=== PATIENT | male | born 1985 | race American Indian/Alaskan Native ===

== ENCOUNTER 2020-08-19 20:18 | Observation (INO) | payer OTHER ==
[2020-08-19] MEDS ORDERED: HYDROmorphone 1 MG/1 ML INJ IV ONE (23:39)
[2020-08-19] MEDS ORDERED: ACETAMINOPHEN 325 MG TAB PO STA (23:40)
--- NOTE | 2020-08-19 23:41 | Emergency Department Report ---
ED General Adult HPI - General Chief complaint: Sickle Cell Crisis Stated complaint: SICKLE CELL PAIN PUI?: Yes Time Seen by Provider: 08/19/20 23:30 Source: patient, RN notes reviewed Mode of arrival: Ambulatory Limitations: No Limitations - History of Present Illness Initial comments: The patient was evaluated in the emergency department for symptoms described in the history of present illness. He/she was evaluated in the context of the global COVID-19 pandemic, which necessitated consideration that the patient might be at risk for infection with the virus that causes COVID-19. Institutional protocols and algorithms that pertain to the evaluation of patients at risk for COVID-19 are in a state of rapid change based on information released by regulatory bodies including the CDC and federal and state organizations. These policies and algorithms were followed during the patient's care in the emergency department. Please note that these policies, procedures and recommendations changed on a rapid basis. Mr. Solorio is a pleasant 34-year-old gentleman who is not known to myself previously. His medical oncology physician is a Dr. Kramer, who he reports works in [place]. He reports that he has a history of sickle cell trait, but not true sickle cell disease, that he is aware of. He presents to the ER with a complaint of yellow eyes, feeling like his body is hot, intermittent shakes and chills, without significant pain, denies headache, neck pain, chest pain, abdominal pain, shortness of breath, cough, loss of taste, loss of smell, and urinary symptoms. He states that he is gotten scleral icterus in the past, but reports is not been as impressive as it is today. He rates his discomfort as a 7 out of 10. He states he is follow-up with his specialist later on this week, he denies recent travel, surgeries, leg pain and leg swelling. -: Gradual Consistency: constant Improves with: none Worsens with: none - Related Data Home Medications Medication Instructions Recorded Confirmed Last Taken Folic Acid [Folvite] 1 mg PO QDAY 08/20/20 08/20/20 Unknown Allergies Allergy/AdvReac Type Severity Reaction Status Date / Time No Known Allergies Allergy Verified 08/19/20 21:23 ED Review of Systems ROS: Stated complaint: SICKLE CELL PAIN Other details as noted in HPI Constitutional: chills, diaphoresis, fever Eyes: denies: eye discharge ENT: denies: epistaxis Respiratory: denies: cough Cardiovascular: denies: chest pain Gastrointestinal: denies: abdominal pain, nausea, vomiting, diarrhea Genitourinary: denies: dysuria Musculoskeletal: myalgia. denies: back pain Skin: denies: lesions Neurological: weakness Hematological/Lymphatic: denies: easy bleeding ED Past Medical Hx - Past Medical History Previous Medical History?: Yes Hx Sickle Cell Disease: Yes - Surgical History Past Surgical History?: No - Medications Home Medications: Home Medications Medication Instructions Recorded Confirmed Last Taken Type Folic Acid [Folvite] 1 mg PO QDAY 08/20/20 08/20/20 Unknown History ED Physical Exam - General Limitations: No Limitations General appearance: alert, in no apparent distress - Head Head exam: Present: atraumatic, normocephalic - Eye Eye exam: Present: normal appearance, EOMI, scleral icterus. Absent: nystagmus - ENT ENT exam: Present: normal exam, normal orophraynx, mucous membranes moist, normal external ear exam - Neck Neck exam: Present: normal inspection, full ROM. Absent: tenderness, meningismus - Respiratory Respiratory exam: Present: normal lung sounds bilaterally. Absent: respiratory distress, wheezes, rales, rhonchi, stridor, decreased breath sounds - Cardiovascular Cardiovascular Exam: Present: regular rate, normal rhythm, normal heart sounds. Absent: bradycardia, tachycardia, irregular rhythm, systolic murmur, diastolic murmur, rubs, gallop - GI/Abdominal GI/Abdominal exam: Present: soft. Absent: distended, tenderness, guarding, rebound, rigid, pulsatile mass - Rectal Rectal exam: Present: deferred - Extremities Exam Extremities exam: Present: normal inspection, full ROM, other (2+ pulses noted in the bilateral upper and lower extremities. There is no palpable cord. negative Homans sign. Muscular compartments are soft. The pelvis is stable.). Absent: pedal edema, calf tenderness - Back Exam Back exam: Present: normal inspection, full ROM. Absent: tenderness, CVA tenderness (R), CVA tenderness (L), muscle spasm, paraspinal tenderness, vertebral tenderness - Neurological Exam Neurological exam: Present: alert, oriented X3, other (No facial droop. Tongue midline. Extraocular movements intact bilaterally. Facial sensation intact to light touch in V1, V2, V3 distribution bilaterally. 5 and a 5 strength in 4 extremities. Sensation intact to light touch in 4 extremities.). Absent: motor sensory deficit - Psychiatric Psychiatric exam: Present: normal affect, normal mood - Skin Skin exam: Present: warm, dry, intact, normal color. Absent: rash ED Course Vital Signs 08/19/20 08/19/20 08/20/20 21:21 23:25 00:15 Temperature 99.1 F 98.9 F Pulse Rate 91 H 84 81 Respiratory 16 20 20 Rate Blood Pressure 125/69 127/76 117/61 Blood Pressure 127/76 [Left] O2 Sat by Pulse 92 92 97 Oximetry 08/20/20 08/20/20 08/20/20 00:20 00:31 00:45 Temperature Pulse Rate 79 76 Respiratory 18 14 18 Rate Blood Pressure 114/60 128/67 Blood Pressure [Left] O2 Sat by Pulse 100 100 Oximetry 08/20/20 08/20/20 08/20/20 00:50 01:01 01:15 Temperature Pulse Rate 76 79 Respiratory 18 10 L 18 Rate Blood Pressure 118/63 110/55 Blood Pressure [Left] O2 Sat by Pulse 100 100 Oximetry 08/20/20 08/20/20 08/20/20 01:31 01:45 02:01 Temperature Pulse Rate 132 H 124 H 78 Respiratory 24 24 13 Rate Blood Pressure 111/58 111/64 118/67 Blood Pressure [Left] O2 Sat by Pulse 99 100 99 Oximetry 08/20/20 08/20/20 08/20/20 02:15 02:31 02:45 Temperature Pulse Rate 76 73 78 Respiratory 13 16 15 Rate Blood Pressure 116/65 116/64 111/63 Blood Pressure [Left] O2 Sat by Pulse 100 100 100 Oximetry 08/20/20 08/20/20 08/20/20 03:01 03:15 03:31 Temperature Pulse Rate 76 88 79 Respiratory 25 H 15 21 Rate Blood Pressure 114/60 120/64 104/44 Blood Pressure [Left] O2 Sat by Pulse 100 100 100 Oximetry 08/20/20 08/20/20 08/20/20 03:45 03:56 04:01 Temperature Pulse Rate 78 84 Respiratory 18 18 17 Rate Blood Pressure 105/50 114/56 Blood Pressure [Left] O2 Sat by Pulse 100 99 Oximetry - Reevaluation(s) Reevaluation #1: 08/20/20 00:45 Differential diagnosis, include but not limited to: Hepatitis, viral syndrome, pneumonia, urinary tract infection, hemolysis assessment and plan: 34-year-old gentleman With low-grade temperature, hypoxia, scleral icterus, reported history of sickle cell trait, without significant pain. Patient placed on isolation precautions. Laboratory studies ordered. Urinalysis pending. Reassess after initial data points. Patient is asking for pain medicine. We will order pain medicine. He will also be given acetaminophen. Reassess after initial data points. Reevaluation #2: 08/20/20 02:01 Laboratory studies show anemia, elevated reticulocyte count, leukocytosis, metabolic acidosis, hyperbilirubinemia, x-ray of the chest is clear. Rediscussed with patient. He continues to be hypoxic, and requires 2 to 3 L of supplemental oxygen. He will be given Decadron, ceftriaxone and azithromycin. I have recommended admission to the medical service for supportive care. The patient is amenable to hospitalization. Hospital physician, Dr. Franky Hartmann to admit With clear x-ray of the chest, this is unlikely to be acute chest syndrome. Patient denies chest pain, significant shortness of breath, posterior leg pain and leg swelling. We do not suspect a pulmonary embolus. He is not tachycardic at this time 08/20/20 02:03 ED Medical Decision Making - Lab Data Result diagrams: 08/20/20 14:58 08/20/20 12:05 Vital Signs 08/19/20 08/19/20 08/20/20 21:21 23:25 00:20 Temperature 99.1 F 98.9 F Pulse Rate 91 H 84 Respiratory 16 20 18 Rate Blood Pressure 125/69 127/76 Blood Pressure 127/76 [Left] O2 Sat by Pulse 92 92 Oximetry - Radiology Data Radiology results: report reviewed, image reviewed interpreted by me: 1 view x-ray of the chest, interpreted by myself, clear lungs, no pneumothorax, no infiltrate, unremarkable cardiac silhouette, unremarkable osseous anatomy X-ray of the chest is negative for acute findings. Critical care attestation.: If time is entered above; I have spent that time in minutes in the direct care of this critically ill patient, excluding procedure time. ED Disposition Clinical Impression: Suspected 2019 novel coronavirus infection, Hypoxia, Sickle cell anemia with crisis, Hyperbilirubinemia Disposition: OP ADMIT IP TO THIS HOSP Is pt being admited?: Yes Does the pt Need Aspirin: No Condition: Serious
[2020-08-19] MEDS ORDERED: D5W/0.45% NACL 1,000 ML IV SCH (23:45)
--- NOTE | 2020-08-20 00:59 | XRay Report ---
CHEST 1 VIEW 08/20/2020 12:05 AM INDICATION / CLINICAL INFORMATION: hypoxia, hbss crisis. COMPARISON: None available. FINDINGS: SUPPORT DEVICES: None. HEART / MEDIASTINUM: No significant abnormality. LUNGS / PLEURA: No significant pulmonary or pleural abnormality. No pneumothorax. ADDITIONAL FINDINGS: No significant additional findings. IMPRESSION: 1. No acute findings. Signer Name: Kwabena Johnson MD Signed: 08/20/2020 12:54 AM Workstation Name: [id number]
[2020-08-20 01:02] LABS: Hemoglobin 7.2 gm/dl (11.8-15.2); Mean Corpuscular HGB Conc 37 % (32-34); Mean Corpuscular Volume 90 fl (84-94); Platelet Count 348 K/mm3 (140-440); Red Blood Count 2.18 M/mm3 (3.65-5.03)
[2020-08-20 01:10] LABS: Red Cell Distribution Width 20.8 % (13.2-15.2)
[2020-08-20 01:11] LABS: INR 1.11 (0.87-1.13)
[2020-08-20 01:20] LABS: Bacteria,Urine 1+ /HPF (Negative); Bilirubin,Urine SM (Negative); Blood,Urine SM (Negative); Color,Urine Amber (Yellow); Protein,Urine <15 mg/dL mg/dL (Negative)
[2020-08-20 01:23] LABS: Alanine Aminotransferase 62 units/L (7-56); Albumin 4.1 g/dL (3.9-5); Bilirubin,Direct 4.8 mg/dL (0-0.2); Blood Urea Nitrogen 12 mg/dL (9-20); Calcium 8.2 mg/dL (8.4-10.2); Hemolysis Index 25
[2020-08-20 01:30] LABS: Ictotest,Urine Positive (Negative)
[2020-08-20 01:33] LABS: BUN/Creatinine Ratio 40
[2020-08-20] MEDS ORDERED: AZITHROMYCIN 500 MG in SODIUM CHLORIDE 0.9% 250ML 250 ML IV ONE (02:00)
[2020-08-20] MEDS ORDERED: D5W/0.45% NACL 1,000 ML IV SCH (02:00)
[2020-08-20] MEDS ORDERED: dexAMETHasone 4 MG/ML VIAL IV ONE (02:00)
[2020-08-20] MEDS ORDERED: cefTRIAXone/NS 1 GM/50 ML 1 GM/50 ML BAG IV STA (02:00)
[2020-08-20 02:38] LABS: Total Cells Counted 100
[2020-08-20 02:39] LABS: Sickle Cells 2+
[2020-08-20 02:40] LABS: Anisocytosis 1+; Hypochromasia 1+
[2020-08-20 02:43] LABS: Target Cells Few
[2020-08-20 02:44] LABS: Platelet Estimate Consistent w Auto
[2020-08-20] MEDS ORDERED: ACETAMINOPHEN 325 MG TAB PO PRN (03:15)
[2020-08-20] MEDS ORDERED: ONDANSETRON 4 MG/2 ML INJ IV PRN ×2 (03:15)
[2020-08-20] MEDS ORDERED: MAGNESIUM HYDROXIDE (MOM) ORAL LIQD UDC PO PRN ×2 (03:15)
[2020-08-20] MEDS ORDERED: HYDROmorphone 1 MG/1 ML INJ IV PRN (03:15)
[2020-08-20] MEDS ORDERED: diphenhydrAMINE 50 MG/ML VIAL IV PRN (03:15)
--- NOTE | 2020-08-20 03:30 | History and Physical Report ---
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 He denies any headache or dizziness, no chest pain or shortness of breath, denies any cough, no hematuria or dysuria, denies any sick contacts and no recent travel. Patient denies contact with anyone with COVID-19. He was hypoxic upon arrival in the emergency room today. Chest x-ray was unremarkable. He had elevated bilirubin and elevated reticulocyte counts. Patient is being admitted for sickle cell crisis and also to be ruled out for possible COVID. Past History Past Medical History: other (Sickle cell disease) Past Surgical History: No surgical history Social history: no significant social history Family history: no significant family history Medications and Allergies Allergies Allergy/AdvReac Type Severity Reaction Status Date / Time No Known Allergies Allergy Verified 08/19/20 21:23 Home Medications Medication Instructions Recorded Confirmed Last Taken Type Folic Acid [Folvite] 1 mg PO QDAY 08/20/20 08/20/20 Unknown History Active Meds: Active Medications Acetaminophen (Tylenol) 650 mg PO Q4H PRN PRN Reason: Pain MILD(1-3)/Fever >100.5/DORAN Bisacodyl (Dulcolax) 10 mg [place] QDAY PRN PRN Reason: Constipation unrelieved by MOM Diphenhydramine HCl (Benadryl) 25 mg IV Q6H PRN PRN Reason: Itching Folic Acid (Folvite) 1 mg PO QDAY ROJAS Hydromorphone HCl (Dilaudid) 0.5 mg IV Q3H PRN PRN Reason: Pain , Severe (7-10) Dextrose/Sodium Chloride (D5/0.45ns) 1,000 mls @ 0 mls/hr IV DIRECT ROJAS Azithromycin 500 mg/ Sodium (Chloride) 250 mls @ 250 mls/hr IV Q24HR ROJAS; Protocol Ceftriaxone Sodium (Rocephin/Ns 2 Gm/100 Ml) 2 gm in 100 mls @ 200 mls/hr IV Q24HR ROJAS; Protocol Magnesium Hydroxide (Milk Of Magnesia) 30 ml PO Q4H PRN PRN Reason: Constipation Magnesium Hydroxide (Milk Of Magnesia) 30 ml PO Q4H PRN PRN Reason: Constipation Multivitamins (Theragran Tab) 1 each PO QDAY [facility] Ondansetron HCl (Zofran) 4 mg IV Q8H PRN PRN Reason: Nausea And Vomiting Ondansetron HCl (Zofran) 4 mg IV Q8H PRN PRN Reason: Nausea And Vomiting Senna (Senokot) 17.2 mg PO QHS ROJAS Sodium Chloride (Sodium Chloride Flush Syringe 10 Ml) 10 ml IV BID ROJAS Sodium Chloride (Sodium Chloride Flush Syringe 10 Ml) 10 ml IV PRN PRN PRN Reason: LINE FLUSH Review of Systems Constitutional: fever, no chills Ears, nose, mouth and throat: no nasal congestion, no sore throat Cardiovascular: no chest pain, no palpitations Respiratory: no cough, no shortness of breath Gastrointestinal: no abdominal pain, no nausea, no vomiting, no diarrhea Genitourinary Male: no dysuria, no hematuria, no flank pain Musculoskeletal: no neck pain, no low back pain Integumentary: no rash, no pruritis Neurological: no headaches, no confusion Psychiatric: no anxiety, no depression Exam - Constitutional Vitals: Temp Pulse Resp BP Pulse Ox 98.9 F 76 25 H 114/60 100 08/19/20 23:25 08/20/20 03:01 08/20/20 03:01 08/20/20 03:01 08/20/20 03:01 General appearance: Present: no acute distress, well-nourished - EENT Eyes: Present: PERRL, EOM intact, scleral icterus ENT: hearing intact, clear oral mucosa, dentition normal - Neck Neck: Present: supple, normal ROM - Respiratory Respiratory effort: normal Respiratory: bilateral: CTA - Cardiovascular Rhythm: regular Heart Sounds: Present: S1 & S2. Absent: gallop, systolic murmur, diastolic murmur, rub - Extremities Extremities: no ischemia, pulses intact, pulses symmetrical, No edema, Full ROM Peripheral Pulses: within normal limits - Abdominal General gastrointestinal: Present: soft, non-tender, non-distended, normal bowel sounds. Absent: mass - Integumentary Integumentary: Present: clear, warm, dry - Musculoskeletal Musculoskeletal: strength equal bilaterally - Psychiatric Psychiatric: appropriate mood/affect, intact judgment & insight, memory intact, cooperative - Neurologic Neurologic: CNII-XII intact, no focal deficits, moves all extremities Results - Labs CBC & Chem 7: 08/20/20 00:29 08/20/20 00:29 Labs: Abnormal lab results 08/20/20 08/20/20 08/20/20 Range/Units 00: 00: 00:29 WBC 17.3 H (4.5-11.0) K/mm3 RBC 2.18 L (3.65-5.03) M/mm3 Hgb 7.2 L (11.8-15.2) gm/dl Hct 20.0 L (35.5-45.6) % MCH 33 H (28-32) pg MCHC 37 H (32-34) % RDW 20.8 H (13.2-15.2) % Monocytes % (Manual) 14.0 H (0.0-7.3) % Basophils % (Manual) 2.0 H (0.0-1.8) % Seg Neutrophils # Man 9.7 H (1.8-7.7) K/mm3 Monocytes # (Manual) 2.4 H (0.0-0.8) K/mm3 Eosinophils # (Manual) 0.5 H (0.0-0.4) K/mm3 Basophils # (Manual) 0.3 H (0.0-0.1) K/mm3 Percent Retic 11.25 H (0.78-2.58) % Sodium 136 L (137-145) mmol/L Carbon Dioxide 16 L (22-30) mmol/L Creatinine 0.3 L (0.8-1.3) mg/dL Glucose 136 H (75-100) mg/dL Calcium 8.2 L (8.4-10.2) mg/dL Total Bilirubin 11.20 H (0.1-1.2) mg/dL Direct Bilirubin 4.8 H (0-0.2) mg/dL AST 100 H (5-40) units/L ALT 62 H (7-56) units/L Alkaline Phosphatase 247 H (35-129) units/L Total Creatine Kinase 31 L (55-170) units/L Acetaminophen (10.0-30.0) ug/mL 08/20/20 Range/Units 00:29 WBC (4.5-11.0) K/mm3 RBC (3.65-5.03) M/mm3 Hgb (11.8-15.2) gm/dl Hct (35.5-45.6) % MCH (28-32) pg MCHC (32-34) % RDW (13.2-15.2) % Monocytes % (Manual) (0.0-7.3) % Basophils % (Manual) (0.0-1.8) % Seg Neutrophils # Man (1.8-7.7) K/mm3 Monocytes # (Manual) (0.0-0.8) K/mm3 Eosinophils # (Manual) (0.0-0.4) K/mm3 Basophils # (Manual) (0.0-0.1) K/mm3 Percent Retic (0.78-2.58) % Sodium (137-145) mmol/L Carbon Dioxide (22-30) mmol/L Creatinine (0.8-1.3) mg/dL Glucose (75-100) mg/dL Calcium (8.4-10.2) mg/dL Total Bilirubin (0.1-1.2) mg/dL Direct Bilirubin (0-0.2) mg/dL AST (5-40) units/L ALT (7-56) units/L Alkaline Phosphatase (35-129) units/L Total Creatine Kinase (55-170) units/L Acetaminophen 5.0 L (10.0-30.0) ug/mL Assessment and Plan - Patient Problems (1) Sickle cell anemia with crisis Current Visit: Yes Status: Acute Plan to address problem: Patient placed on IV fluid and analgesic medication. Will monitor CBC including reticulocyte counts. (2) Suspected 2019 novel coronavirus infection Current Visit: Yes Status: Acute Plan to address problem: Patient placed on 6 isolation precautions. We will place consult to infectious disease for evaluation. (3) Hyperbilirubinemia Current Visit: Yes Status: Acute Plan to address problem: Possibly secondary to the sickle cell crisis. Will monitor chemistry. (4) Hypoxia Current Visit: Yes Status: Acute Plan to address problem: We will keep oxygen saturation greater or equal to 94%. (5) DVT prophylaxis Current Visit: Yes Status: Acute Plan to address problem: Patient placed on subcutaneous Lovenox. (6) Full code status Current Visit: Yes Status: Acute
[2020-08-20] MEDS ORDERED: HYDROmorphone 1 MG/1 ML INJ ONE (03:52)
[2020-08-20] MEDS ORDERED: FOLIC ACID 1 MG TAB PO SCH (10:00)
[2020-08-20] MEDS ORDERED: MULTIVITAMINS ,THERAPEUTIC TAB PO SCH (10:00)
[2020-08-20 12:58] LABS: Blood Urea Nitrogen 9 mg/dL (9-20); Calcium 8.7 mg/dL (8.4-10.2); Hemolysis Index 48
[2020-08-20 13:03] LABS: BUN/Creatinine Ratio 45
[2020-08-20 13:12] LABS: Basophils # (Auto) 0.2 K/mm3 (0.0-0.1); Eosinophils % (Auto) 0.4 % (0.0-4.3); Monocytes # (Auto) 0.7 K/mm3 (0.0-0.8); Monocytes % (Auto) 5.7 % (0.0-7.3)
[2020-08-20 13:14] LABS: Red Blood Count 1.94 M/mm3 (3.65-5.03)
[2020-08-20 13:17] LABS: Hemoglobin TNR gm/dl (11.8-15.2); Mean Corpuscular Volume 88 fl (84-94)
[2020-08-20 13:18] LABS: Basophils % (Auto) 1.9 % (0.0-1.8); Lymphocytes # (Auto) 1.5 K/mm3 (1.2-5.4); Lymphocytes % (Auto) 12.1 % (13.4-35.0); Mean Corpuscular HGB Conc TNR % (32-34); Platelet Count 338 K/mm3 (140-440)
--- NOTE | 2020-08-20 15:03 | Consultation ---
History of Present Illness - Reason for Consult Consult date: 08/20/20 Hypoxia, rule out COVID Requesting physician: JEANNE ERAZO - History of Present Illness The patient is a 34-year-old male with sickle cell disease was admitted to the hospital with yellowish discoloration of his eyes as well as subjective fever. Patient was noted to be hypoxic upon arrival in the emergency room, COVID PCR is pending. Infectious diseases was consulted for additional evaluation. Patient has been afebrile here. Labs have revealed leukocytosis along with anemia and elevated bilirubin. He is currently on room air. Review of Systems: reviewed in the chart, unable to obtain directly due to PPE preservation and minimize risk of transmission Past History Past Medical History: other (Sickle cell disease) Past Surgical History: No surgical history Social history: no significant social history Family history: no significant family history Medications and Allergies Allergies Allergy/AdvReac Type Severity Reaction Status Date / Time No Known Allergies Allergy Verified 08/19/20 21:23 Home Medications Medication Instructions Recorded Confirmed Last Taken Type Folic Acid [Folvite] 1 mg PO QDAY 08/20/20 08/20/20 Unknown History Active Meds: Active Medications Acetaminophen (Tylenol) 650 mg PO Q4H PRN PRN Reason: Pain MILD(1-3)/Fever >100.5/DORAN Bisacodyl (Dulcolax) 10 mg [place] QDAY PRN PRN Reason: Constipation unrelieved by MOM Diphenhydramine HCl (Benadryl) 25 mg IV Q6H PRN PRN Reason: Itching Enoxaparin Sodium (Enoxaparin) 40 mg SUB-Q QDAY@2200 ROJAS; Protocol Folic Acid (Folvite) 1 mg PO QDAY ROJAS Last Admin: 08/20/20 10:07 Dose: 1 mg Documented by: Hydromorphone HCl (Dilaudid) 0.5 mg IV Q3H PRN PRN Reason: Pain , Severe (7-10) Last Admin: 08/20/20 03:56 Dose: 0.5 mg Documented by: Dextrose/Sodium Chloride (D5/0.45ns) 1,000 mls @ 0 mls/hr IV DIRECT ROJAS Last Admin: 08/20/20 04:00 Dose: 1,000 mls/hr Documented by: Magnesium Hydroxide (Milk Of Magnesia) 30 ml PO Q4H PRN PRN Reason: Constipation Multivitamins (Theragran Tab) 1 each PO QDAY ROJAS Last Admin: 08/20/20 10:07 Dose: 1 each Documented by: Ondansetron HCl (Zofran) 4 mg IV Q8H PRN PRN Reason: Nausea And Vomiting Senna (Senokot) 17.2 mg PO QHS ROJAS Sodium Chloride (Sodium Chloride Flush Syringe 10 Ml) 10 ml IV BID ROJAS Last Admin: 08/20/20 10:07 Dose: 10 ml Documented by: Sodium Chloride (Sodium Chloride Flush Syringe 10 Ml) 10 ml IV PRN PRN PRN Reason: LINE FLUSH Physical Examination - Physical Exam Narrative exam: Physical Exam (reviewed in chart due to PPE conservation and minimize risk of transmission) Constitutional: limited due to PPE conservation strategy Head, Ears, Nose: limited due to PPE conservation strategy Eyes: limited due to PPE conservation strategy Neck: limited due to PPE conservation strategy Oral: limited due to PPE conservation strategy Cardiovascular: limited due to PPE conservation strategy Respiratory: limited due to PPE conservation strategy GI: limited due to PPE conservation strategy Musculoskeletal: limited due to PPE conservation strategy Skin: limited due to PPE conservation strategy Hem/Lymphatic: limited due to PPE conservation strategy Psych: limited due to PPE conservation strategy Neurological: limited due to PPE conservation strategy - Constitutional Vitals: Vital Signs Temp Pulse Resp BP Pulse Ox 98.7 F 78 18 98/55 93 08/20/20 11:56 08/20/20 11:56 08/20/20 11:56 08/20/20 11:56 08/20/20 11:56 Temperature -Last 24 Hours Temperature 98.7 F Temperature 99.2 F Temperature 98.9 F Temperature 98.9 F Temperature 99.1 F Results - Labs CBC & Chem 7: 08/20/20 12:05 08/20/20 12:05 Labs: Abnormal lab results 08/20/20 08/20/20 08/20/20 Range/Units 00:29 00:29 00:29 WBC 17.3 H (4.5-11.0) K/mm3 RBC 2.18 L (3.65-5.03) M/mm3 Hgb 7.2 L (11.8-15.2) gm/dl Hct 20.0 L (35.5-45.6) % MCH 33 H (28-32) pg MCHC 37 H (32-34) % RDW 20.8 H (13.2-15.2) % Lymph % (Auto) (13.4-35.0) % Baso % (Auto) (0.0-1.8) % Baso # (Auto) (0.0-0.1) K/mm3 Seg Neutrophils % (40.0-70.0) % Monocytes % (Manual) 14.0 H (0.0-7.3) % Basophils % (Manual) 2.0 H (0.0-1.8) % Seg Neutrophils # (1.8-7.7) K/mm3 Seg Neutrophils # Man 9.7 H (1.8-7.7) K/mm3 Monocytes # (Manual) 2.4 H (0.0-0.8) K/mm3 Eosinophils # (Manual) 0.5 H (0.0-0.4) K/mm3 Basophils # (Manual) 0.3 H (0.0-0.1) K/mm3 Percent Retic 11.25 H (0.78-2.58) % Sodium 136 L (137-145) mmol/L Carbon Dioxide 16 L (22-30) mmol/L Creatinine 0.3 L (0.8-1.3) mg/dL Glucose 136 H (75-100) mg/dL Calcium 8.2 L (8.4-10.2) mg/dL Total Bilirubin 11.20 H (0.1-1.2) mg/dL Direct Bilirubin 4.8 H (0-0.2) mg/dL AST 100 H (5-40) units/L ALT 62 H (7-56) units/L Alkaline Phosphatase 247 H (35-129) units/L Lactate Dehydrogenase 902 H (91-180) units/L Total Creatine Kinase 31 L (55-170) units/L Acetaminophen (10.0-30.0) ug/mL 08/20/20 08/20/20 08/20/20 Range/Units 00:29 12:05 12:05 WBC 12.5 H (4.5-11.0) K/mm3 RBC 1.94 L (3.65-5.03) M/mm3 Hgb (11.8-15.2) gm/dl Hct 17.0 L* (35.5-45.6) % MCH (28-32) pg MCHC (32-34) % RDW 21.0 H (13.2-15.2) % Lymph % (Auto) 12.1 L (13.4-35.0) % Baso % (Auto) 1.9 H (0.0-1.8) % Baso # (Auto) 0.2 H (0.0-0.1) K/mm3 Seg Neutrophils % 79.9 H (40.0-70.0) % Monocytes % (Manual) (0.0-7.3) % Basophils % (Manual) (0.0-1.8) % Seg Neutrophils # 10.0 H (1.8-7.7) K/mm3 Seg Neutrophils # Man (1.8-7.7) K/mm3 Monocytes # (Manual) (0.0-0.8) K/mm3 Eosinophils # (Manual) (0.0-0.4) K/mm3 Basophils # (Manual) (0.0-0.1) K/mm3 Percent Retic (0.78-2.58) % Sodium 136 L (137-145) mmol/L Carbon Dioxide 18 L (22-30) mmol/L Creatinine < 0.2 L (0.8-1.3) mg/dL Glucose 111 H (75-100) mg/dL Calcium (8.4-10.2) mg/dL Total Bilirubin (0.1-1.2) mg/dL Direct Bilirubin (0-0.2) mg/dL AST (5-40) units/L ALT (7-56) units/L Alkaline Phosphatase (35-129) units/L Lactate Dehydrogenase (91-180) units/L Total Creatine Kinase (55-170) units/L Acetaminophen 5.0 L (10.0-30.0) ug/mL - Imaging and Cardiology Chest x-ray: report reviewed, image reviewed (no pneumonia seen) Assessment and Plan Cultures: Coronavirus PCR: Pending A/P: 34-year-old male with sickle cell disease was admitted to the hospital with yellowish discoloration of his eyes as well as subjective fever. Patient was no thalia to be hypoxic upon arrival in the emergency room, COVID PCR is pending: #Acute transient hypoxia: Possibly related to anemia. Chest x-ray does not show any pneumonia. #Sickle cell anemia with crisis, hyperbilirubinemia. Recs: Low suspicion for COVID-19. Follow-up PCR Antibiotics discontinued Monisha Rosa MD, FACP [facility] C: [phone] O: [phone] F: [phone]
[2020-08-20 15:15] LABS: Hematocrit 17.5 % (35.5-45.6)
[2020-08-20 15:17] LABS: Hemoglobin 6.7 gm/dl (11.8-15.2)
[2020-08-20] MEDS ORDERED: SODIUM CHLORIDE 0.9% 500 ML 500 ML IV SCH (16:13)
--- NOTE | 2020-08-20 16:25 | Progress Note ---
Assessment and Plan Assessment and plan: --Sickle cell anemia ; Hb 6.7 Current Visit: Yes Status: Acute Plan to address problem: Type and screen, transfuse 1 unit of PRBC, closely monitor H&H and additional transfusion if needed --Sickle cell anemia with crisis Current Visit: Yes Status: Acute Plan to address problem: Patient placed on IV fluid and analgesic medication. High reticulocyte count, pain medications Supportive care, hematology consult if needed. -- Suspected 2019 novel coronavirus infection Current Visit: Yes Status: Acute Plan to address problem: Taylor PCR test sent, ID following Droplet and contact isolation Continue to monitor inflammatory markers -- Hyperbilirubinemia Current Visit: Yes Status: Acute Plan to address problem: Possibly secondary to the sickle cell crisis. --Hypoxia Current Visit: Yes Status: Acute Plan to address problem: We will keep oxygen saturation greater or equal to 94%. --DVT prophylaxis Current Visit: Yes Status: Acute Plan to address problem: Patient placed on subcutaneous Lovenox. -- Full code status Current Visit: Yes Status: Acute We will closely monitor the patient and adjust management as needed Plan of care reviewed with the patient and his nurse History Interval history: I have seen and examined the patient this afternoon at the bedside Patient's chart and medications reviewed, patient with sickle cell disease Admitted with painful crisis, and high risk for COVID-19/PUI Patient complains of generalized weakness H&H dropped today from 7.2-6.7 No external evidence of bleeding Patient in mild distress Vital signs noted Hospitalist Physical - Constitutional Vitals: Temp Pulse Resp BP Pulse Ox 98.7 F 78 18 98/55 93 08/20/20 11:56 08/20/20 11:56 08/20/20 11:56 08/20/20 11:56 08/20/20 11:56 General appearance: Present: no acute distress, well-nourished - EENT Eyes: Present: PERRL, EOM intact - Neck Neck: Present: supple, normal ROM - Respiratory Respiratory effort: normal Respiratory: bilateral: diminished, negative: rales, rhonchi, wheezing - Cardiovascular Rhythm: regular Heart Sounds: Present: S1 & S2 - Extremities Extremities: no ischemia, No edema - Abdominal General gastrointestinal: soft, non-tender, non-distended, normal bowel sounds - Integumentary Integumentary: Present: clear, warm - Psychiatric Psychiatric: appropriate mood/affect, cooperative - Neurologic Neurologic: CNII-XII intact, moves all extremities Results - Labs CBC & Chem 7: 08/20/20 14:58 08/20/20 12:05 Labs: Laboratory Last Values WBC 12.5 K/mm3 (4.5-11.0) H 08/20/20 12:05 RBC 1.94 M/mm3 (3.65-5.03) L 08/20/20 12:05 Hgb 6.7 gm/dl (11.8-15.2) L 08/20/20 14:58 Hct 17.5 % (35.5-45.6) L* 08/20/20 14:58 MCV 88 fl (84-94) 08/20/20 12:05 MCH TNR 08/20/20 12:05 MCHC TNR 08/20/20 12:05 RDW 21.0 % (13.2-15.2) H 08/20/20 12:05 Plt Count 338 K/mm3 (140-440) 08/20/20 12:05 Lymph % (Auto) 12.1 % (13.4-35.0) L 08/20/20 12:05 Clay % (Auto) 5.7 % (0.0-7.3) 08/20/20 12:05 Eos % (Auto) 0.4 % (0.0-4.3) 08/20/20 12:05 Baso % (Auto) 1.9 % (0.0-1.8) H 08/20/20 12:05 Lymph # (Auto) 1.5 K/mm3 (1.2-5.4) 08/20/20 12:05 Clay # (Auto) 0.7 K/mm3 (0.0-0.8) 08/20/20 12:05 Eos # (Auto) 0.0 K/mm3 (0.0-0.4) 08/20/20 12:05 Baso # (Auto) 0.2 K/mm3 (0.0-0.1) H 08/20/20 12:05 Add Manual Diff Complete 08/20/20 00:29 Total Counted 100 08/20/20 00:29 Seg Neutrophils % 79.9 % (40.0-70.0) H 08/20/20 12:05 Seg Neuts % (Manual) 56.0 % (40.0-70.0) 08/20/20 00:29 Band Neutrophils % 0 % 08/20/20 00:29 Lymphocytes % (Manual) 25.0 % (13.4-35.0) 08/20/20 00:29 Reactive Lymphs % (Man) 0 % 08/20/20 00:29 Monocytes % (Manual) 14.0 % (0.0-7.3) H 08/20/20 00:29 Eosinophils % (Manual) 3.0 % (0.0-4.3) 08/20/20 00:29 Basophils % (Manual) 2.0 % (0.0-1.8) H 08/20/20 00:29 Metamyelocytes % 0 % 08/20/20 00:29 Myelocytes % 0 % 08/20/20 00:29 Promyelocytes % 0 % 08/20/20 00:29 Blast Cells % 0 % 08/20/20 00:29 Nucleated RBC % Not Reportable 08/20/20 00:29 Seg Neutrophils # 10.0 K/mm3 (1.8-7.7) H 08/20/20 12:05 Seg Neutrophils # Man 9.7 K/mm3 (1.8-7.7) H 08/20/20 00:29 Band Neutrophils # 0.0 K/mm3 08/20/20 00:29 Lymphocytes # (Manual) 4.3 K/mm3 (1.2-5.4) 08/20/20 00:29 Abs React Lymphs (Man) 0.0 K/mm3 08/20/20 00:29 Monocytes # (Manual) 2.4 K/mm3 (0.0-0.8) H 08/20/20 00:29 Eosinophils # (Manual) 0.5 K/mm3 (0.0-0.4) H 08/20/20 00:29 Basophils # (Manual) 0.3 K/mm3 (0.0-0.1) H 08/20/20 00:29 Metamyelocytes # 0.0 K/mm3 08/20/20 00:29 Myelocytes # 0.0 K/mm3 08/20/20 00:29 Promyelocytes # 0.0 K/mm3 08/20/20 00:29 Blast Cells # 0.0 K/mm3 08/20/20 00:29 WBC Morphology Not Reportable 08/20/20 00:29 Hypersegmented Neuts Not Reportable 08/20/20 00:29 Hyposegmented Neuts Not Reportable 08/20/20 00:29 Hypogranular Neuts Not Reportable 08/20/20 00:29 Smudge Cells Not Reportable 08/20/20 00:29 Toxic Granulation Not Reportable 08/20/20 00:29 Toxic Vacuolation Not Reportable 08/20/20 00:29 Dohle Bodies Not Reportable 08/20/20 00:29 Pelger-Huet Anomaly Not Reportable 08/20/20 00:29 Roseann Rods Not Reportable 08/20/20 00:29 Platelet Estimate Consistent w auto 08/20/20 00:29 Clumped Platelets Not Reportable 08/20/20 00:29 Plt Clumps, EDTA Not Reportable 08/20/20 00:29 Large Platelets Not Reportable 08/20/20 00:29 Giant Platelets Not Reportable 08/20/20 00:29 Platelet Satelliting Not Reportable 08/20/20 00:29 Plt Morphology Comment Not Reportable 08/20/20 00:29 RBC Morphology Not Reportable 08/20/20 00:29 Dimorphic RBCs Not Reportable 08/20/20 00:29 Polychromasia Not Reportable 08/20/20 00:29 Hypochromasia 1+ 08/20/20 00:29 Poikilocytosis Not Reportable 08/20/20 00:29 Anisocytosis 1+ 08/20/20 00:29 Microcytosis Not Reportable 08/20/20 00:29 Macrocytosis Not Reportable 08/20/20 00:29 Spherocytes Not Reportable 08/20/20 00:29 Pappenheimer Bodies Not Reportable 08/20/20 00:29 Sickle Cells 2+ 08/20/20 00:29 Target Cells Few 08/20/20 00:29 Tear Drop Cells Not Reportable 08/20/20 00:29 Ovalocytes Not Reportable 08/20/20 00:29 Helmet Cells Not Reportable 08/20/20 00:29 Gutierrez-Nehalem Bodies Not Reportable 08/20/20 00:29 Melvin Rings Not Reportable 08/20/20 00:29 [place] Cells Not Reportable 08/20/20 00:29 Bite Cells Not Reportable 08/20/20 00:29 Crenated Cell Not Reportable 08/20/20 00:29 Elliptocytes Not Reportable 08/20/20 00:29 Acanthocytes (Spur) Not Reportable 08/20/20 00:29 Rouleaux Not Reportable 08/20/20 00:29 Hemoglobin C Crystals Not Reportable 08/20/20 00:29 Schistocytes Not Reportable 08/20/20 00:29 Malaria parasites Not Reportable 08/20/20 00:29 Percent Retic 11.25 % (0.78-2.58) H 08/20/20 00:29 Brandon Bodies Not Reportable 08/20/20 00:29 Hem Pathologist Commnt No 08/20/20 00:29 PT 14.4 Sec. (12.2-14.9) 08/20/20 00:29 INR 1.11 (0.87-1.13) 08/20/20 00:29 Sodium 136 mmol/L (137-145) L 08/20/20 12:05 Potassium 4.5 mmol/L (3.6-5.0) D 08/20/20 12:05 Chloride 104.3 mmol/L (98-107) 08/20/20 12:05 Carbon Dioxide 18 mmol/L (22-30) L 08/20/20 12:05 Anion Gap 18 mmol/L 08/20/20 12:05 BUN 9 mg/dL (9-20) 08/20/20 12:05 Creatinine < 0.2 mg/dL (0.8-1.3) L 08/20/20 12:05 Estimated GFR > 60 ml/min 08/20/20 12:05 BUN/Creatinine Ratio 45 % 08/20/20 12:05 Glucose 111 mg/dL (75-100) H 08/20/20 12:05 Calcium 8.7 mg/dL (8.4-10.2) 08/20/20 12:05 Magnesium 2.20 mg/dL (1.7-2.3) 08/20/20 00:29 Total Bilirubin 11.20 mg/dL (0.1-1.2) H 08/20/20 00:29 Direct Bilirubin 4.8 mg/dL (0-0.2) H 08/20/20 00:29 Indirect Bilirubin 6.4 mg/dL 08/20/20 00:29 AST 100 units/L (5-40) H 08/20/20 00:29 ALT 62 units/L (7-56) H 08/20/20 00:29 Alkaline Phosphatase 247 units/L (35-129) H 08/20/20 00:29 Lactate Dehydrogenase 902 units/L (91-180) H 08/20/20 00:29 Total Creatine Kinase 31 units/L (55-170) L 08/20/20 00:29 Total Protein 7.0 g/dL (6.3-8.2) 08/20/20 00:29 Albumin 4.1 g/dL (3.9-5) 08/20/20 00:29 Albumin/Globulin Ratio 1.4 % 08/20/20 00:29 Urine Color Aracelis (Yellow) 08/20/20 00:53 Urine Turbidity Clear (Clear) 08/20/20 00:53 Urine pH 5.0 (5.0-7.0) 08/20/20 00:53 Ur Specific [place] 1.010 (1.003-1.030) 08/20/20 00:53 Urine Protein <15 mg/dl mg/dL (Negative) 08/20/20 00:53 Urine Glucose (UA) Neg mg/dL (Negative) 08/20/20 00:53 Urine Ketones Neg mg/dL (Negative) 08/20/20 00:53 Urine Blood Sm (Negative) 08/20/20 00:53 Urine Nitrite Neg (Negative) 08/20/20 00:53 Urine Bilirubin Sm (Negative) 08/20/20 00:53 Urine Ictotest Positive (Negative) 08/20/20 00:53 Urine Urobilinogen 4.0 mg/dL (<2.0) 08/20/20 00:53 Ur Leukocyte Esterase Neg (Negative) 08/20/20 00:53 Urine WBC (Auto) 1.0 /HPF (0.0-6.0) 08/20/20 00:53 Urine RBC (Auto) 1.0 /HPF (0.0-6.0) 08/20/20 00:53 Urine Bacteria (Auto) 1+ /HPF (Negative) 08/20/20 00:53 Acetaminophen 5.0 ug/mL (10.0-30.0) L 08/20/20 00:29 Coronavirus (PCR) (Negative) 08/20/20 Unknown Microbiology: Microbiology 08/20/20 00:29 Peripheral/Venous Blood Culture - Preliminary Culture in Progress 08/20/20 00:22 Peripheral/Venous Blood Culture - Preliminary Culture in Progress Rodriguez/IV: Voiding Method Toilet IV Catheter Type [Right INT / Saline Lock Forearm] Active Medications - Current Medications Current Medications: Generic Name Dose Route Start Last Admin Trade Name Freq PRN Reason Stop Dose Admin Acetaminophen 650 mg 08/20/20 03:15 Tylenol PO Q4H PRN Pain MILD(1-3)/Fever >100.5/DORAN Bisacodyl 10 mg 08/20/20 03:15 Dulcolax MO QDAY PRN Constipation unrelieved by MOM Diphenhydramine HCl 25 mg 08/20/20 03:15 Benadryl IV Q6H PRN Itching Enoxaparin Sodium 40 mg 08/20/20 22:00 Enoxaparin SUB-Q QDAY@2200 [facility] Protocol Folic Acid 1 mg 08/20/20 10:00 08/20/20 10:07 Folvite PO 1 mg QDAY ROJAS Administration Folic Acid 1 mg 08/21/20 10:00 Folvite PO QDAY ROJAS Hydromorphone HCl 0.5 mg 08/20/20 03:15 08/20/20 03:56 Dilaudid IV 0.5 mg Q3H PRN Administration Pain , Severe (7-10) Dextrose/Sodium Chloride 1,000 mls @ 0 mls/hr 08/20/20 02:00 08/20/20 04:00 D5/0.45ns IV 1,000 mls/hr DIRECT ROJAS Administration Wide Open Sodium Chloride 500 mls @ 0 mls/hr 08/20/20 16:13 Nacl 0.9% 500 Ml IV 08/20/20 16:14 ONCE ONE As Directed Magnesium Hydroxide 30 ml 08/20/20 03:15 Milk Of Magnesia PO Q4H PRN Constipation Multivitamins 1 each 08/20/20 10:00 08/20/20 10:07 Theragran Tab PO 1 each QDAY ROJAS Administration Ondansetron HCl 4 mg 08/20/20 03:15 Zofran IV Q8H PRN Nausea And Vomiting Senna 17.2 mg 08/20/20 22:00 Senokot PO QHS ROJAS Sodium Chloride 10 ml 08/20/20 10:00 08/20/20 10:07 Sodium Chloride Flush Syringe 10 Ml IV 10 ml BID ROJAS Administration Sodium Chloride 10 ml 08/20/20 03:15 Sodium Chloride Flush Syringe 10 Ml IV PRN PRN LINE FLUSH
[2020-08-20] MEDS ORDERED: AZITHROMYCIN 500 MG in SODIUM CHLORIDE 0.9% 250ML 250 ML IV SCH (22:00)
[2020-08-20] MEDS ORDERED: cefTRIAXone/NS 2 GM/100 ML 2 GM/100 ML BAG IV SCH (22:00)
[2020-08-20] MEDS ORDERED: ENOXAPARIN 40 MG/0.4 ML INJ SUB-Q SCH (22:00)
[2020-08-20] MEDS ORDERED: SENNOSIDES 8.6 MG TAB PO SCH (22:00)
[2020-08-20 23:35] VITALS: BP 110/61
--- NOTE | 2020-08-21 08:01 | Discharge Summary ---
Providers - Providers Date of Admission: 08/20/20 02:04 Date of discharge: 08/21/20 Attending physician: RONEL GUTIERREZ 08/20/20 03:15 Consult to Physician [CONS] Routine Comment: Consulting Provider: GAGE BRIDGES Physician Instructions: Reason For Exam: Fever. HYPOXIA R/O COVID 19 [facility] Condition: Serious Disposition: DC-07 LEFT AGAINST MED ADVICE Exam - Constitutional Vitals: Temp Pulse Resp BP Pulse Ox 98.3 F 72 18 110/61 95 08/20/20 21:38 08/20/20 21:38 08/20/20 21:38 08/20/20 21:38 08/20/20 21:38 [facility] [Primary Care Provider[facility] - 7 Days Forms: AMA Form
[2020-08-21] MEDS ORDERED: FOLIC ACID 1 MG TAB PO SCH (10:00)
== END 2020-08-21 00:30 | disposition left against medical advice (07) ==
LOC: ED 20:18 → 3A 08-20 02:04
PROVIDERS: ADMIT Internal Medicine Geriatric Medicine; ATTEND Internal Medicine
DX: D57.00 Hb-SS disease with crisis, unspecified (principal); Z20.828 Contact with and (suspected) exposure to other viral communicable diseases; R50.9 Fever, unspecified; E80.6 Other disorders of bilirubin metabolism; R09.02 Hypoxemia
CPT/HCPCS: 36415; 71045; 80048; 80076; 81001; 82550; 83615; 83735; 85014; 85018; 85025; 85045; 85610; 86850; 86900; 86901; 87040; 87086; 96365; 96367; 96372; 96375; 96376; 99284; G0378; J0456; J0696; J1100; J1170; J1650; J7050; U0003; 80320; 85007; 86922; G0480